=== PATIENT | male | born 1940 | race Asian ===

== ENCOUNTER 2017-07-17 16:13 | Emergency (ER) | payer OTHER ==
[~2017-07-17] VITALS: Ht 177.8 cm; Wt 89.4 kg
[2017-07-17 16:12] VITALS: BP 168/78; TEMP 98.1
[2017-07-17] MEDS ORDERED: ALLO300T23 PO (16:26)
[2017-07-17] MEDS ORDERED: CARV12.5 PO (16:27)
[2017-07-17] MEDS ORDERED: DOCU100C10 PO (16:27)
[2017-07-17] MEDS ORDERED: KEPPRA1000 MG PO (16:28)
[2017-07-17] MEDS ORDERED: ESCI10TA PO (16:28)
[2017-07-17] MEDS ORDERED: LOSA50TA PO (16:29)
[2017-07-17] MEDS ORDERED: PANTOPRAZOLE 40MG TA PO (16:29)
[2017-07-17] MEDS ORDERED: METF500T PO (16:29)
[2017-07-17] MEDS ORDERED: THIA100T8 PO (16:30)
[2017-07-17] MEDS ORDERED: TRAZ50TA36 PO ×2 (16:30→18:13)
[2017-07-17] MEDS ORDERED: INSUINJ8 SC (16:31)
[2017-07-17] MEDS ORDERED: ALBUSOL IN (16:33)
[2017-07-17] MEDS ORDERED: TYLENOL325 MG PO (16:34)
[2017-07-17 17:16] LABS: PLATELET COUNT 201 K/uL (142-355)
[2017-07-17 17:22] LABS: POTASSIUM 4.4 mmol/L (3.6-5.2)
[2017-07-17] MEDS ORDERED: MELATONIN3 M1 PO (18:09)
[2017-07-17] MEDS ORDERED: [UNRECOGNIZED DRUG - OTHER] TD (18:11)
[2017-07-17] MEDS ORDERED: GABA100C2 PO (18:13)
[2017-07-17] MEDS ORDERED: FINGERSTIX (18:14)
[2017-07-17] MEDS ORDERED: INSU100P SC (18:16)
== END 2017-07-17 19:05 | disposition other institution (70) ==
LOC: ED 16:13
PROVIDERS: Family Medicine
DX: R46.89 Other symptoms and signs involving appearance and behavior (principal); Z04.6 Encounter for general psychiatric examination, requested by authority; I10 Essential (primary) hypertension
CPT/HCPCS: 36415; 80053; 82550; 84484; 85027; 93005; 99285